=== PATIENT | male | born 1995 | race Hispanic/Latino ===

== ENCOUNTER 2019-08-24 19:01 | Emergency (ER) | payer SELFPAY ==
[2019-08-24] MEDS ORDERED: Sodium Chloride 0.9% 1,000 ML IV ONE (19:22)
[2019-08-24] MEDS ORDERED: diphenhydrAMINE 50 MG/ML SDV IVPUSH ONE (19:22)
[2019-08-24] MEDS ORDERED: Famotidine 20 MG/2 ML SDV IVPUSH ONE (19:24)
[2019-08-24] MEDS ORDERED: Ondansetron 4 MG/2 ML SDV IVPUSH ONE (19:24)
--- NOTE | 2019-08-24 19:27 | EDM.PDOC ---
ED HPI GENERAL MEDICAL PROBLEM - General Chief Complaint: Abdominal Pain Stated Complaint: NAUSEA Time Seen by Provider: 08/24/19 19:25 Source of Information: Reports: Patient History Limitations: Reports: No Limitations - History of Present Illness INITIAL COMMENTS - FREE TEXT/NARRATIVE: Conveyor Loader service used: Conveyor Loader ID [id number] Patient is a 23-year-old male with no significant past medical history presenting with chief complaint of vomiting, shortness of breath, and cramping in his hands which started shortly after drinking a frappe. Patient denies any tightness or itchiness in his throat. Patient denies any itchiness to his skin. Patient denies any prior history of similar symptoms. Nothing makes symptoms better or worse. Patient denies any pain anywhere including headache, chest pain, abdominal pain. All day today, the patient has been feeling well and not experiencing any sort of symptoms. Patient has no recent travels. Pmhx: None Pshx: None Family Hx: noncontributory Smoking history? no Etoh use? none Drug use? none In addition to that documented in the HPI above, the additional ROS was obtained : Constitutional: Denies fevers or chills Eyes: Denies vision changes ENMT: Denies sore throat CV: Denies chest pain Resp: Per HPI GI: Per HPI : Denies painful urination MSK: Denies recent trauma Skin: Denies new rashes Neuro: Denies new numbness or tingling or weakness Endocrine: Denies unexpected weight loss Heme: Denies bleeding disorders I have reviewed the triage vital signs Const: Well nourished, well developed, appears stated age Eyes: PERRL, no conjunctival injection HENT: NCAT, Neck supple without meningismus CV: RRR, Warm, well-perfused extremities RESP: CTAB, Unlabored respiratory effort GI: soft, non-tender, non-distended, no masses MSK: No gross deformities appreciated Skin: Warm, dry. No rashes Neuro: Alert, psychiatric aide II-XII grossly intact. Sensation and motor function of extremities grossly intact. Psych: Appropriate mood and affect Assessment and plan: Patient is a 23-year-old male no significant past medical history presenting with vomiting and possible anxiety. Patient's EKG demonstrated initially sinus tachycardia which improved on repeat examination. Patient's repeat EKG demonstrates normal sinus rhythm without ischemic changes. Patient's labs were negative for any evidence of acute coronary syndrome or pulmonary embolism. Patient's checks x-ray was within normal limits and did not demonstrate any signs of pneumothorax. Patient feels better after administration of medications. Patient given return precautions for chest pain and vomiting. All questions addressed and answered. Patient agrees with plan. - Related Data Allergies Allergy/AdvReac Type Severity Reaction Status Date / Time No Known Allergies Allergy Verified 08/24/19 19:33 Home Meds: Home Meds . [No Known Home Meds] 08/24/19 [History] ED ROS GENERAL - Review of Systems Review Of Systems: See Below ED EXAM, GI/ABD - Physical Exam Exam: See Below Course - Vital Signs Last Recorded V/S: Last Vital Signs Temp 36.4 C 08/24/19 19:09 Pulse 98 08/24/19 20:15 Resp 17 08/24/19 20:15 BP 128/84 08/24/19 20:15 Pulse Ox 98 08/24/19 20:15 - Orders/Labs/Meds Orders: Active Orders 24 hr Category Date Time Status EKG Documentation Completion [RC] STAT Care 08/24/19 20:19 Active Labs: Laboratory Tests 08/24/19 08/24/19 08/24/19 Range/Units 19:24 19:24 19:24 WBC 9.49 (4.0-11.0) K/uL RBC 5.52 (4.50-5.90) M/uL Hgb 16.5 (13.0-17.0) g/dL Hct 48.1 (38.0-50.0) % MCV 87.1 (80.0-98.0) fL MCH 29.9 (27.0-32.0) pg MCHC 34.3 (31.0-37.0) g/dL RDW Std Deviation 42.9 (28.0-62.0) fl RDW Coeff of Robert 13 (11.0-15.0) % Plt Count 221 (150-400) K/uL MPV 11.60 (7.40-12.00) fL Neut % (Auto) 66.0 (48.0-80.0) % Lymph % (Auto) 28.0 (16.0-40.0) % Beaver % (Auto) 5.5 (0.0-15.0) % Eos % (Auto) 0.4 (0.0-7.0) % Baso % (Auto) 0.1 (0.0-1.5) % Neut # (Auto) 6.3 H (1.4-5.7) K/uL Lymph # (Auto) 2.7 H (0.6-2.4) K/uL Beaver # (Auto) 0.5 (0.0-0.8) K/uL Eos # (Auto) 0.0 (0.0-0.7) K/uL Baso # (Auto) 0.0 (0.0-0.1) K/uL Nucleated RBC % 0.0 /100WBC Nucleated RBCs # 0 K/uL D-Dimer, Quantitative < 0.19 (0.0-0.50) mg/L FEU Sodium 139 (136-148) mmol/L Potassium 3.1 L (3.5-5.1) mmol/L Chloride 100 (98-107) mmol/L Carbon Dioxide 28.3 (21.0-32.0) mmol/L BUN 11 (7.0-18.0) mg/dL Creatinine 1.1 (0.8-1.3) mg/dL Est Cr Clr Drug Dosing TNP Estimated GFR (MDRD) > 60.0 ml/min Glucose 145 H (74-106) mg/dL Calcium 8.7 (8.5-10.1) mg/dL Total Bilirubin 0.5 (0.2-1.0) mg/dL AST 29 (15-37) IU/L ALT 72 H (14-63) IU/L Alkaline Phosphatase 112 (46-116) U/L Troponin I < 0.050 (0.000-0.056) ng/mL Total Protein 8.7 H (6.4-8.2) g/dL Albumin 4.5 (3.4-5.0) g/dL Globulin 4.2 H (2.6-4.0) g/dL Albumin/Globulin Ratio 1.1 (0.9-1.6) Lipase 61 L (73-393) U/L Meds: Medications Discontinued Medications Generic Name Dose Route Start Last Admin Trade Name Freq PRN Reason Stop Dose Admin Diphenhydramine HCl 25 mg 08/24/19 19:22 08/24/19 19:38 Benadryl IVPUSH 04/19/20 19:23 25 mg ONETIME ONE Administration Famotidine 20 mg 08/24/19 19:24 08/24/19 19:39 Pepcid IVPUSH 08/24/19 19:25 20 mg ONETIME ONE Administration Sodium Chloride 1,000 mls @ 1,000 mls/hr 08/24/19 19:22 08/24/19 19:34 Normal Saline IV 08/24/19 20:21 1,000 mls/hr .Bolus ONE Administration Ondansetron HCl 4 mg 08/24/19 19:24 08/24/19 19:36 Zofran IVPUSH 08/24/19 19:25 4 mg ONETIME ONE Administration Potassium Chloride 40 meq 08/24/19 19:57 08/24/19 20:35 Klor-Con M20 PO 08/24/19 19:58 40 meq ONETIME ONE Administration Departure - Departure Time of Disposition: 20:18 Disposition: Home, Self-Care 01 Clinical Impression: Vomiting - Discharge Information Instructions: Nausea and Vomiting, Adult, [id number] Referrals: Petey Arreguin,Roxanne [Ordering Only Provider] - PCP,None [Primary Care Provider] - Forms: ED Department Discharge Additional Instructions: The following information is given to patients seen in the emergency department who are being discharged to home. This information is to outline your options for follow-up care. We provide all patients seen in our emergency department with a follow-up referral. The need for follow-up, as well as the timing and circumstances, are variable depending upon the specifics of your emergency department visit. If you don't have a primary care physician on staff, we will provide you with a referral. We always advise you to contact your personal physician following an emergency department visit to inform them of the circumstance of the visit and for follow-up with them and/or the need for any referrals to a consulting specialist. The emergency department will also refer you to a specialist when appropriate. This referral assures that you have the opportunity for follow-up care with a specialist. All of these measure are taken in an effort to provide you with optimal care, which includes your follow-up. Under all circumstances we always encourage you to contact your private physician who remains a resource for coordinating your care. When calling for follow-up care, please make the office aware that this follow-up is from your recent emergency room visit. If for any reason you are refused follow-up, please contact the [facility] Emergency Department at and asked to speak to the emergency department charge nurse. Sepsis Event Note - Focused Exam Vital Signs: Vital Signs Temp Pulse Resp BP Pulse Ox 08/24/19 20:15 98 17 128/84 98 08/24/19 20:00 102 H 18 117/78 97 08/24/19 19:45 109 H 16 133/86 98 08/24/19 19:09 36.4 C 125 H 20 151/67 H 97 Date Exam was Performed: 08/24/19 Time Exam was Performed: 20:43 - My Orders Last 24 Hours: My Active Orders 08/24/19 20:19 EKG Documentation Completion [RC] STAT - Assessment/Plan Last 24 Hours: My Active Orders 08/24/19 20:19 EKG Documentation Completion [RC] STAT
--- NOTE | 2019-08-24 19:43 | CR ---
Chest: AP portable view of the chest was obtained. Comparison: No previous chest imaging. Heart size and mediastinum are normal. Lungs are clear with no acute parenchymal change. Bony structures are grossly intact. Impression: 1. Nothing acute is seen on portable chest x-ray. Diagnostic code #1 This report was dictated in MDT
[2019-08-24 19:54] LABS: BLOOD UREA NITROGEN,BUN 11 mg/dL (7.0-18.0); CARBON DIOXIDE,CO2 28.3 mmol/L (21.0-32.0); CHLORIDE,CL 100 mmol/L (98-107); GLUCOSE RANDOM 145 mg/dL (74-106); LIPASE 61 U/L (73-393); POTASSIUM,K 3.1 mmol/L (3.5-5.1); SODIUM,NA 139 mmol/L (136-148)
[2019-08-24] MEDS ORDERED: Potassium Chloride 20 MEQ Tab.ER PO ONE (19:57)
== END 2019-08-24 20:55 | disposition home or self-care (01) ==
LOC: MW.ED 19:01
DX: R11.10 Vomiting, unspecified (principal)
CPT/HCPCS: 36415; 71045; 80053; 83690; 84484; 85025; 85379; 93005; 96361; 96374; 96375; 99285; A9270; J1200; J2405; J7030; S0028; 99283; J3490